=== PATIENT | male | born 1995 | race Caucasian/White ===

== ENCOUNTER 2018-06-02 17:15 | Observation (INO) | payer OTHER ==
--- NOTE | 2018-06-02 17:23 | EDPHY ---
H & P Time Seen by Provider: 06/02/18 17:15 HPI/ROS: CHIEF COMPLAINT: Right thigh injury HISTORY OF PRESENT ILLNESS: Brought in by EMS as a limited trauma, the patient said on his 2nd run he lost his balance in the [place], slid down on his skis, and his right mid thigh impacted a tree. He was unable to get upper stand and was brought in by EMS in a traction splint. He did get 2 doses of ketamine pre- hospital. Patient says thigh pain started just after the incident. Does not radiate. Worse with movement. Not associated with weakness or numbness in the foot or ankle. REVIEW OF SYSTEMS: Eye: no visual symptoms ENT: no symptoms Cardiac: no chest pain or syncope Pulmonary: no SOB Abdomen: no vomiting, no abdominal pain Musculoskeletal: no back pain, no neck pain Skin: no laceration Neuro: no headache, no loss of consciousness or weakness or numbness in extremities Constitutional: no fever : no hematuria A comprehensive 10 point review of systems is otherwise negative aside from elements mentioned in the history of present illness. PAST MEDICAL HISTORY: Negative Social history: No alcohol General Appearance: Alert and conversant, cooperative. Eyes: No scleral icterus. ENT, Mouth: Normal mucous membranes. Respiratory: Normal respiratory effort, breath sounds equal, lungs are clear to auscultation. Cardiovascular: Regular rate and rhythm. Gastrointestinal: Abdomen is soft and non tender. No tenderness over liver or spleen. Neurological: Alert, face symmetric, normal motor and sensory in extremities. Normal motor sensory and dorsalis pedis pulse in the right foot. Skin: Warm and dry, no rashes. No laceration over the mid right thigh. Musculoskeletal: Compartments are soft in the right thigh, no midline cervical thoracic or lumbar spinal tenderness to palpation, mid right thigh swelling and tenderness. No tenderness to the right knee lower leg ankle or foot, and pelvis is stable. Psychiatric: Not agitated. Emergency Department course/MDM: NPO. Right femur x-ray. Last oral intake 2:00 p.m.. Appears to have isolated right thigh injury without neurovascular compromise, it is not open. Patient downgraded to no level trauma activation on arrival. Differential diagnosis considered for blunt trauma including but not limited to intracranial injury, bony fracture, spinal injury, liver or spleen injury, pneumothorax and hemothorax. 1750: IV fluids, patient informed that orthopedic surgery will try to fix him tonight. Additional 1 mg IV Dilaudid, kept in his traction splint. 1930: Dr. Franklin in ED to evaluate the patient. Constitutional: Initial Vital Signs Temperature (C) 37.4 C 06/02/18 17:37 Heart Rate 88 06/02/18 17:37 Respiratory Rate 16 06/02/18 17:37 Blood Pressure 143/86 H 06/02/18 17:37 O2 Sat (%) 96 06/02/18 17:37 O2 Delivery Mode Room Air Allergies/Adverse Reactions: No Known Drug Allergies Allergy (Verified 06/02/18 17:38) Home Medications: Medication Instructions Recorded Glucosamine Sulfate [Glucosamine 500 mg PO DAILY 06/02/18 Sulfate 500 MG (*)] Herbals/Supplements -Info Only 1 ea PO DAILY 06/02/18 Multivitamins [Multivitamin (*)] 1 each PO DAILY 06/02/18 [place]-3 Fatty Acids [Fish Oil 1000 1,000 mg PO DAILY 06/02/18 mg (*)] Medical Decision Making - Diagnostics Imaging Results: Imaging Impressions Femur X-Ray 06/02/18 17:22 Impression: Comminuted displaced distal diaphysis fracture of the right femur. Transverse distal femur fracture with posterior displacement of the distal fragment. Imaging: I viewed and interpreted images myself Consult/Admit Bed Type: dr. Franklin [id number] - Data Points Medications Given: Discontinued Medications Hydromorphone HCl (Dilaudid) 1 mg IVP EDNOW ONE Stop: 06/02/18 17:54 Last Admin: 06/02/18 17:56 Dose: 1 mg Hydromorphone HCl (Dilaudid) 1 mg IVP EDNOW ONE Stop: 06/02/18 18:33 Last Admin: 06/02/18 18:34 Dose: 1 mg Sodium Chloride (Ns) 1,000 mls @ 0 mls/hr IV EDNOW ONE; Wide Open PRN Reason: Protocol Stop: 06/02/18 17:58 Last Admin: 06/02/18 17:59 Dose: 1,000 mls Departure - Departure Disposition: [facility] Inpatient Acute Clinical Impression: Closed right femoral fracture Qualifiers: Encounter type: initial encounter Femur location: shaft Fracture morphology: transverse Fracture alignment: displaced Qualified Code(s): S72.321A - Displaced transverse fracture of shaft of right femur, initial encounter for closed fracture Condition: Good
[2018-06-02] MEDS ORDERED: HYDROmorphONE/DILAUDID 2 MG/ML INJ IVP ONE ×2 (17:53→18:32)
[2018-06-02] MEDS ORDERED: NS 1,000 ML IV ONE (17:57)
[2018-06-02] MEDS ORDERED: HYDROmorphONE/DILAUDID 1 MG/ML INJ ONE (18:30)
[2018-06-02 18:51] LABS: PLATELET COUNT 188 10^3/uL (150-400)
[2018-06-02] MEDS ORDERED: HYDROmorphONE/DILAUDID 1 MG/ML INJ IVP ONE (20:07)
--- NOTE | 2018-06-02 20:09 | PDGENHP ---
History and Physical History and Physical: Orthopaedic H&P DOS: 06/02/2018 CC: Right thigh pain HPI: Called by ED (Keith) to evaluate patient in ED for Right femur fracture. Patient lost control on [place] and hit a tree. No head injury/LOC. Immediate pain. Was placed in traction, which has improved pain. PMHx: No medical comorbidities All: NKDA Soc: Nonsmoker. Recent arrival to [place]; was planning to work and snowboard ROS: Was in usual healthy state prior to injury- no changes/abnormalities on 10 systems reviewed. PE: AAOx3. Unlabored breathing. BUE: moving well without pain. Neuro intact LLE: Moving without pain. SILT S/S/SP/DP/T. 2+ DP RLE: In traction brace. SILT S/S/SP/DP/T. 2+ DP. Moving toes well. Closed skin of thigh. Imaging: Right distal femur shaft fracture. A/P: 22y M p/w Right distal femur fracture. - NPO - Plan for OR tonight for Right femur IMN, retrograde. - Admit
[2018-06-02] MEDS ORDERED: ACETAMINOPHEN 500 MG TAB PO PRN (20:39)
[2018-06-02] MEDS: oxyCODONE IR 5 MG TAB PO PRN (20:54)
[2018-06-02] MEDS ORDERED: LR 1,000 ML IV ONE (21:59)
--- NOTE | 2018-06-02 23:01 | PDANEPAE ---
ANE Past Medical History - Cardiovascular History Hx Hypertension: No Hx Arrhythmias: No Hx Chest Pain: No Hx Coronary Artery / Peripheral Vascular Disease: No Hx CHF / Valvular Disease: No Hx Palpitations: No - Pulmonary History Hx COPD: No Hx Asthma/Reactive Airway Disease: No Hx Recent Upper Respiratory Infection: No Hx Oxygen in Use at Home: No Hx Sleep Apnea: No Sleep Apnea Screening Result - Last Documented: Positive - Endocrine History Hx Diabetes: No Hypothyroid: No Hyperthyroid: No Obesity: no Endocrine History Comment: overweight - GI History GERD: no Hx Gastrointestinal Disorders: No - Surgical History Prior Surgeries: wisdom teeth ANE Review of Systems Review of Systems: - Exercise capacity Exercise capacity: >=4 METS ANE Patient History - Allergies Allergies/Adverse Reactions: No Known Drug Allergies Allergy (Verified 06/02/18 17:38) - Home Medications Home Medications: Glucosamine Sulfate [Glucosamine Sulfate 500 MG (*)] 500 mg PO DAILY 06/02/18 [ Last Taken Unknown] Herbals/Supplements -Info Only 1 ea PO DAILY 06/02/18 [Last Taken Unknown] Multivitamins [Multivitamin (*)] 1 each PO DAILY 06/02/18 [Last Taken Unknown] [place]-3 Fatty Acids [Fish Oil 1000 mg (*)] 1,000 mg PO DAILY 06/02/18 [Last Taken Unknown] - NPO status NPO Since - Liquids (Date): 06/02/18 NPO Since - Liquids (Time): 13:30 NPO Since - Solids (Date): 06/02/18 NPO Since - Solids (Time): 13:30 - Anes Hx Anes Hx: no prior problems - Smoking Hx Smoking Status: Never smoked - Alcohol Use Alcohol Use: Occasionally - Family Anes Hx Family Anes Hx: neg - N/A ANE Labs/Vital Signs - Labs Result Diagrams: 06/02/18 18:26 06/02/18 18:26 - Vital Signs Blood Pressure: 156/76 Heart Rate: 91 Respiratory Rate: 16 O2 Sat (%): 96 Height: 190.5 cm Weight: 99.79 kg ANE Physical Exam - Airway Neck exam: FROM Mallampati Score: Class 1 Mouth exam: normal dental/mouth exam - Pulmonary Pulmonary: no respiratory distress, no rales or rhonchi, clear to auscultation - Cardiovascular Cardiovascular: regular rate and rhythym, no murmur, rub, or gallop - ASA Status ASA Status: I ANE Anesthesia Plan Anesthesia Plan: GA w LMA Total IV Anesthesia: No
[2018-06-02] MEDS ORDERED: LIDOCAINE 1% 300 MG/30 ML SDV ONE (23:04)
[2018-06-02] MEDS ORDERED: BUPIVACAINE/EPI 0.5% 30 ML SDV ONE (23:05)
[2018-06-02] MEDS ORDERED: BACITRACIN ZINC 0.5 OZ OINTTUBE TP ONE (23:15)
[2018-06-02] MEDS ORDERED: MIDAZOLAM 2 MG/2 ML VIAL ONE (23:26)
[2018-06-02] MEDS ORDERED: fentaNYL 250 MCG/5 ML INJ ONE (23:31)
[2018-06-02] MEDS ORDERED: PROPOFOL 200 MG/20 ML VIAL ONE (23:31)
[2018-06-02] MEDS ORDERED: DEXAMETHASONE 4 MG/ML VIAL ONE (23:34)
[2018-06-02] MEDS ORDERED: RANITIDINE 50 MG/2 ML VIAL ONE (23:34)
[2018-06-02] MEDS ORDERED: ONDANSETRON 4 MG/2 ML VIAL ONE (23:34)
[2018-06-02] MEDS ORDERED: METOCLOPRAMIDE 10 MG/2 ML VIAL ONE ×2 (23:34→23:35)
[2018-06-02] MEDS ORDERED: LIDOCAINE 2% 5 ML SDV ONE (23:37)
[2018-06-02] MEDS: ceFAZolin 2 GM/DEXTROSE 100 ML IV SCH (23:49)
[2018-06-03] MEDS ORDERED: LR 500 ML IV PRN (00:04)
[2018-06-03] MEDS ORDERED: DIAZEPAM 5 MG/ML 1 ML SYR IVP PRN (00:04)
[2018-06-03] MEDS ORDERED: ONDANSETRON 4 MG/2 ML VIAL IVP PRN ×2 (00:04→02:29)
[2018-06-03] MEDS ORDERED: fentaNYL 100 MCG/2 ML INJ IVP PRN (00:04)
[2018-06-03] MEDS ORDERED: HYDROCODONE/APAP 5/325 TAB PO PRN (00:04)
[2018-06-03] MEDS ORDERED: ACETAMINOPHEN 500 MG TAB PO PRN (00:04)
[2018-06-03] MEDS ORDERED: NALOXONE HCL 0.4 MG/ML INJ IVP PRN (00:04)
[2018-06-03] MEDS ORDERED: PROMETHAZINE HCL 25 MG/ML INJ IVP PRN (00:04)
[2018-06-03] MEDS ORDERED: HYDROmorphONE/DILAUDID 2 MG/ML INJ IVP PRN (00:04)
[2018-06-03] MEDS ORDERED: PHENYLEPHRINE HCL 100 MCG/ML SYR IVP PRN (00:04)
[2018-06-03] MEDS ORDERED: MIDAZOLAM 2 MG/2 ML VIAL IVP ONE (00:04)
[2018-06-03] MEDS ORDERED: MEPERIDINE 25 MG/0.5 ML AMP IVP PRN (00:04)
[2018-06-03] MEDS ORDERED: SUCCINYLCHOLINE CHLORIDE 200 MG/10 ML SYR IVP ONE (00:51)
[2018-06-03] MEDS ORDERED: fentaNYL 250 MCG/5 ML INJ ONE (01:05)
[2018-06-03] MEDS ORDERED: HYDROmorphONE/DILAUDID 2 MG/ML INJ ONE (02:01)
[2018-06-03] MEDS ORDERED: ONDANSETRON DISINTEGRATING 4 MG TAB PO PRN (02:29)
[2018-06-03] MEDS ORDERED: CYCLOBENZAPRINE 10 MG TAB PO PRN (02:30)
--- NOTE | 2018-06-03 02:38 | POSTOPPROG ---
Post Op Note Date of Operation: 06/03/18 Surgeon: Jabier Franklin Anesthesia: GET(General Endotracheal) Pre-op Diagnosis: Right distal femur fracture Post-op Diagnosis: Same Procedure: Right femur intramedullary nail Inf/Abcess present in the surg proc area at time of surgery?: No EBL: 100-500 (150)
--- NOTE | 2018-06-03 02:58 | SUROPNOTE ---
[facility] Operative Report - Surgery Operative Report DOS: 06/02/18 Attg: Jabier Franklin MD Asst: None Preop Dx: Right distal femur fracture Postop Dx: Same Procedure: Right retrograde intramedullary nail fixation of femur fracture Anesthesia: General Indication: 22y M fell while skiing and thigh hit tree. No LOC. Procedure Notes: Consent was reviewed with the patient and he elected to proceed. The patient was taken to OR and anesthesia induced. He was transferred to the OR table. A timeout was performed confirming the patient, procedure, antibiotic status, and surgical site. Leg was draped out. Fluoroscopy was used to visualize the femur fracture. Mena with bumps placed under the Right leg. Made a longitudinal incision at the medial aspect of the patellar tendon. I dissected down to the knee joint. We placed the guidewire at the tip of blumensaat's line and in the sulcus under fluoro guidance. We advanced the wire down the shaft of the distal femur (which was in recurvatum ) We used an entry reamer to enter the femur with a soft tissue guide. We used a finger to line up the distal and proximal femur shaft segments. We advanced the guidewire retrograde up the femur past the lesser. We made an accessory incision on the dorsolateral aspect of the thigh by the fracture and inserted a gooden to try and align the fracture better. We used a series of reamers to ream up to 1.5mm greater than the diameter of the anticipated nail. We inserted a retrograde Synthes nail, using a picador to try and keep the femur aligned. We placed the distal interlock screws and then impacted the nail retrograde to compress at the fracture site. We then used perfect circles technique to place quin proximal interlock Final alignment was checked and the jig removed. The wounds were irrigated out and then closed with vicryls deep and then samantha for the skin. Sterile dressings were applied. The drapes removed, patient woke up and was transferred to the bed and then taken to the PACU for further observation. Count was correct at the conclusion of the case. I was present for the entirety of the case. Implants: Synthes retrograde intramedullary nail Complications: None EBL: 150 Drain: None Specimens: None
--- NOTE | 2018-06-03 03:13 | POSTANESTH ---
Post Anesthetic Evaluation Cardiovascular Status: Normal, Stable Respiratory Status: Normal, Stable Level of Consciousness/Mental Status: Mildly Sleepy, Arousable Pain Control: Adequate, Prn Tx Ordered Nausea/Vomiting Control: Adequate, Prn Tx Ordered Complications Possibly Related to Anesthesia: None Noted
[2018-06-03] MEDS: ceFAZolin 2 GM/DEXTROSE 100 ML IV SCH (05:43)
--- NOTE | 2018-06-03 06:25 | SOAPPROG ---
SOAP Progress Note Assessment/Plan: Assessment: 22y M s/p Right femur IMN Plan: - DVT ppx - Pain Control (oxycodone for breakthrough, acetaminophen q4h) - WBAT RLE - Keep dressings intact - change only if soiled/wet - PT eval - Dispo: can d/c after clearing PT 06/03/18 06:22 Subjective: Resting/sleeping well. pain controlled Objective: Vital Signs Temp Pulse Resp BP Pulse Ox 37.0 C 79 14 142/69 H 97 06/03/18 05:00 06/03/18 05:00 06/03/18 05:00 06/03/18 05:00 06/03/18 05:00 Laboratory Results 06/02/18 18:26 06/02/18 18:26 06/02/18 06/03/18 06/04/18 05:59 05:59 05:59 Intake Total 2520 Output Total 1650 Balance 870 AAOx3. RLE: SILT S/S/SP/DP/T. WWP. + TA/GS/FHL/EHL. Dressings CDI. ICD10 Worksheet Patient Problems: Problems Problem Status Onset Closed right femoral fracture Acute
[2018-06-03 08:53] LABS: PLATELET COUNT 219 10^3/uL (150-400)
[2018-06-03] MEDS ORDERED: ENOXAPARIN 40 MG/0.4 ML SYR SC SCH (09:00)
[2018-06-03 09:01] LABS: INR 1.23 (0.83-1.16); PROTIME(PATIENT) 15.7 SEC (12.0-15.0)
[2018-06-03] MEDS: oxyCODONE IR 5 MG TAB PO PRN (09:15)
[2018-06-03 11:42] VITALS: BP 128/71
== END 2018-06-03 12:21 | disposition home or self-care (01) ==
LOC: INTOOBSV 17:49 → F3N 20:20
PROVIDERS: ADMIT Orthopaedic Surgery; ATTEND Orthopaedic Surgery
PROC: 0QS806Z Reposition Right Femoral Shaft with Intramedullary Internal Fixation Device, Open Approach (ICD-10-PCS; principal; 2018-06-02 22:30)
DX: S72.491A Other fracture of lower end of right femur, initial encounter for closed fracture (principal); V00.322A Snow-skier colliding with stationary object, initial encounter; Y93.23 Activity, snow (alpine) (downhill) skiing, snowboarding, sledding, tobogganing and snow tubing; Y92.838 Other recreation area as the place of occurrence of the external cause; E86.0 Dehydration
CPT/HCPCS: 96374; 97116-GP; 97161-GP; 97530-GP; C1713; J0330; J0690; J1100; J1170; J1650; J2250; J2405; J2704; J2765; J2780; J3010